=== PATIENT | male | born 1930 | race Caucasian/White ===

== ENCOUNTER 2019-10-02 10:00 | Observation (INO) ==
[2019-10-02] MEDS ORDERED: Aspirin 325 MG TABLET PO ONE (11:25)
[2019-10-02 11:34] LABS: Basophils % 0.6 %; Eosinophils # 0.2 K/mcL (0.0-0.6); Eosinophils % 3.1 %; Hematocrit 45.6 % (37.5-50.1); Hemoglobin 14.8 g/dL (12.9-16.9); Immature Granulocytes % 0.2 % (0-4); Lymphocytes # 1.2 K/mcL (0.6-4.6); Lymphocytes % 23.5 %; Mean Corpuscular HGB Conc 32.5 g/dL (31.6-35.5); Mean Corpuscular Hemoglobin 30.5 pg (28.0-33.3); Mean Platelet Volume 9.8 fL (9.4-12.4); Monocytes # 0.5 K/mcL (0.0-1.3); Monocytes % 9.8 %; Neutrophils # 3.2 K/mcL (1.6-8.9); Platelet Count 246 K/mcL (140-400); Red Blood Count 4.85 M/mcL (4.19-5.50); Red Cell Distribution Width 13.4 % (11.5-14.5); Segmented Neutrophils % 62.8 %; White Blood Count 5.1 K/mcL (4.3-11.1)
[2019-10-02 11:51] LABS: BUN/Creatinine Ratio 9 (6-26); Blood Urea Nitrogen 11 mg/dL (8-23); Calcium 9.3 mg/dL (8.6-10.3); Carbon Dioxide 26 mEq/L (23-29); Chloride 104 mEq/L (98-107); Glucose 91 mg/dL (70-105); Osmolality,Calculated 281 (280-300); Potassium 4.1 mEq/L (3.5-5.1); Sodium 136 mEq/L (136-145); Troponin I < 0.03 ng/mL (< 0.04); eGFR For African Americans > 60 (> 60); eGFR For Non-African Americans 59 (> 60)
[2019-10-02 12:05] LABS: Thyroid Stimulating Hormone 1.404 mcIU/mL (0.340-5.600)
[2019-10-02] MEDS ORDERED: Acetaminophen 325 MG TABLET PO PRN (12:32)
[2019-10-02] MEDS ORDERED: Ondansetron ODT 4 MG TAB.RAPDIS SL PRN (12:32)
[2019-10-02] MEDS ORDERED: Naloxone 0.4 MG/ML INJ IVP PRN (12:32)
[2019-10-02] MEDS ORDERED: MOM Conc 10 ML UD.LIQ PO PRN (12:32)
[2019-10-02] MEDS ORDERED: Mag Hydrox/Al Hydrox/Simeth 30 ML UDC PO PRN (12:32)
[2019-10-02] MEDS ORDERED: Nitroglycerin 0.4 MG TAB.SUBL SL PRN (17:00)
[2019-10-02] MEDS: Famotidine 20 MG TABLET PO SCH (20:21)
[2019-10-02] MEDS: gemfibroziL 600 MG TABLET PO SCH (20:21)
[2019-10-03 01:32] LABS: Hematocrit 43.6 % (37.5-50.1); Mean Corpuscular HGB Conc 32.1 g/dL (31.6-35.5); Mean Corpuscular Hemoglobin 29.9 pg (28.0-33.3); Platelet Count 244 K/mcL (140-400); Red Blood Count 4.69 M/mcL (4.19-5.50); Red Cell Distribution Width 13.3 % (11.5-14.5); White Blood Count 5.1 K/mcL (4.3-11.1)
[2019-10-03 01:52] LABS: BUN/Creatinine Ratio 12 (6-26); Blood Urea Nitrogen 14 mg/dL (8-23); Calcium 8.9 mg/dL (8.6-10.3); Carbon Dioxide 23 mEq/L (23-29); Chloride 105 mEq/L (98-107); Chol/HDL Ratio 3.1 (0-4.9); Cholesterol 156 mg/dL (< 200); Glucose 100 mg/dL (70-105); HDL Cholesterol 51 mg/dL (40-59); LDL Cholesterol,Calculated 95 mg/dL (0-99); Magnesium 2.1 mg/dL (1.6-2.6); Osmolality,Calculated 281 (280-300); Sodium 135 mEq/L (136-145); Triglycerides 48 mg/dL (< 150); eGFR For African Americans > 60 (> 60); eGFR For Non-African Americans > 60 (> 60)
[2019-10-03] MEDS ORDERED: Regadenoson 0.4 MG/5 ML SYRINGE IVP ONE (06:04)
[2019-10-03] MEDS ORDERED: lisinopriL 20 MG TABLET PO SCH (09:00)
[2019-10-03] MEDS ORDERED: Finasteride 5 MG TABLET PO SCH (09:00)
[2019-10-03] MEDS ORDERED: Aspirin Enteric Coated 81 MG Tablet PO SCH (09:00)
[2019-10-03] MEDS ORDERED: Aspirin 81 MG TAB.CHEW PO SCH (09:00)
[2019-10-03] MEDS: gemfibroziL 600 MG TABLET PO SCH (10:10)
[2019-10-03] MEDS: Famotidine 20 MG TABLET PO SCH (10:10)
[2019-10-03 11:00] VITALS: BP 132/75
== END 2019-10-03 12:45 | disposition home or self-care (01) ==
LOC: 3BNU 10:00 → EMEROOARM 10:00 → 3BNU 13:18
PROVIDERS: ADMIT Internal Medicine; ATTEND Internal Medicine

== ENCOUNTER 2020-02-20 11:47 | Inpatient (IN) ==
[2020-02-20] MEDS ORDERED: Ringers Solution, Lactated 1,000 ML IVC SCH ×2 (12:15→17:43)
[2020-02-20] MEDS ORDERED: CeFAZolin Syr 2,000MG/20 ML 2,000 MG/20 ML SYRINGE IVPB ONE (12:15)
[2020-02-20] MEDS ORDERED: *HR* FentaNYL (PF) 100 MCG/2 ML VIAL ONE (12:30)
[2020-02-20] MEDS ORDERED: Ondansetron 4 MG/2 ML VIAL ONE (12:30)
[2020-02-20] MEDS ORDERED: *HR* Propofol 200 MG/20 ML VIAL IVP ONE (12:30)
[2020-02-20] MEDS ORDERED: *HR* Succinylcholine 200 MG/10 ML VIAL IVP ONE (12:30)
[2020-02-20] MEDS ORDERED: Lidocaine -MPF 2% 2 ML VIAL ONE (12:30)
[2020-02-20] MEDS ORDERED: ROPIVACAINE/PF/NS 0.25% 1 EACH SYRINGE INTRAART ONE (13:20)
[2020-02-20] MEDS ORDERED: Ropivacaine/PF 0.5% 30 ML VIAL ONE (13:20)
[2020-02-20] MEDS ORDERED: Bupivacaine/EPI 1:200k 0.25% 50 ML VIAL ONE (13:21)
[2020-02-20] MEDS ORDERED: Acetaminophen 325 MG TABLET PO PRN ×2 (13:23→17:43)
[2020-02-20] MEDS ORDERED: *HR* OxyCODONE Immed Rel 5 MG TABLET PO PRN ×2 (13:23→17:43)
[2020-02-20] MEDS ORDERED: Ondansetron 4 MG/2 ML VIAL IVP PRN ×2 (13:28→17:43)
[2020-02-20] MEDS ORDERED: Acetaminophen IV 1,000 MG/100 ML INFUS..BTL ONE (13:45)
[2020-02-20] MEDS ORDERED: *HR* Phenylephrine 10 MG/ML VIAL ONE (14:23)
[2020-02-20] MEDS ORDERED: *HR* Rocuronium Bromide 50 MG/5 ML VIAL ONE (14:24)
[2020-02-20] MEDS ORDERED: Dexamethasone 4 MG/ML VIAL ONE (14:50)
[2020-02-20] MEDS ORDERED: CeFAZolin 2 GM/120 ML BAG IVPB SCH ×2 (16:00→20:00)
[2020-02-20] MEDS ORDERED: gemfibroziL 600 MG TABLET PO SCH (16:30)
[2020-02-20] MEDS: CeFAZolin 2 GM/120 ML BAG IVPB SCH (20:57)
[2020-02-20] MEDS: Famotidine 20 MG TABLET PO SCH (20:57)
[2020-02-20] MEDS ORDERED: QUEtiapine Fumarate 25 MG TABLET PO SCH ×2 (21:00)
[2020-02-20] MEDS ORDERED: Famotidine 20 MG TABLET PO SCH (21:00)
[2020-02-21] MEDS: CeFAZolin 2 GM/120 ML BAG IVPB SCH (04:24)
[2020-02-21] MEDS ORDERED: *HR* Enoxaparin 40 MG/0.4 ML SYRINGE SQ SCH ×2 (06:00)
[2020-02-21] MEDS ORDERED: gemfibroziL 600 MG TABLET PO SCH (07:30)
[2020-02-21] MEDS: Famotidine 20 MG TABLET PO SCH (08:09)
[2020-02-21] MEDS ORDERED: lisinopriL 5 MG TABLET PO SCH ×2 (09:00)
[2020-02-21] MEDS ORDERED: Multivitamin Liquid 15 ML UDC PO SCH ×2 (09:00)
[2020-02-21] MEDS ORDERED: Finasteride 5 MG TABLET PO SCH ×2 (09:00)
[2020-02-21 10:35] VITALS: BP 100/60
[2020-02-21 14:18] LABS: Adenovirus Not Detected (Not Detect); Bordetella Pertussis Not Detected (Not Detect); Chlamydophila pneumoniae Not Detected (Not Detect); Coronavirus 229E Not Detected (Not Detect); Coronavirus HKU1 Not Detected (Not Detect); Coronavirus NL63 Not Detected (Not Detect); Coronavirus OC43 Not Detected (Not Detect); Human Metapneumovirus Not Detected (Not Detect); Human Rhinovirus/Enterovirus Not Detected (Not Detect); Influenza A Subtype 2009 H1 Not Detected (Not Detect); Influenza B Not Detected (Not Detect); Mycoplasma pneumoniae Not Detected (Not Detect); Parainfluenza Virus 1 Not Detected (Not Detect); Parainfluenza Virus 2 Not Detected (Not Detect); Parainfluenza Virus 3 Not Detected (Not Detect); Parainfluenza Virus 4 Not Detected (Not Detect); Respiratory Syncytial Virus Not Detected (Not Detect); SARS-CoV-2 Not Detected (Not Detect)
== END 2020-02-21 15:20 | DRG 469 ==
LOC: SAMDAY 11:47 → 3NENU 17:42
PROVIDERS: ADMIT Podiatrist; ATTEND Podiatrist